=== PATIENT | male | born 1965 | race African-American/Black ===

== ENCOUNTER 2018-03-17 13:42 | Outpatient (CLI) | payer OTHER ==
--- NOTE | 2018-03-17 15:41 | RAD ---
CHEST PA AND LATERAL: HISTORY: A 52-year-old male with dyspnea. COMPARISON: 05/10/17. FINDINGS: Heart size is within normal limits. The lungs are clear. No pneumonia, edema, or pleural effusion. IMPRESSION: No acute intrathoracic disease. Stable from prior study. POS: [facility]
== END 2018-03-17 13:43 | disposition home or self-care (01) ==
LOC: RAD 13:42
PROVIDERS: ATTEND Family Medicine
DX: Z02.71 Encounter for disability determination (principal); R06.00 Dyspnea, unspecified
CPT/HCPCS: 71046

== ENCOUNTER 2018-08-02 10:37 | Emergency (ER) | payer OTHER, SELFPAY ==
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
== END 2018-08-02 12:00 | disposition home or self-care (01) ==
LOC: ERS 10:37
DX: S09.90XA Unspecified injury of head, initial encounter (principal); S40.021A Contusion of right upper arm, initial encounter; V43.92XA Unspecified car occupant injured in collision with other type car in traffic accident, initial encounter
CPT/HCPCS: 70450

== ENCOUNTER 2020-04-26 22:51 | Emergency (ER) | payer SELFPAY | END 2020-04-27 00:44 | disposition home or self-care (01) | LOC: ERS 22:51 | DX: R55 Syncope and collapse (principal); R59.0 Localized enlarged lymph nodes | CPT/HCPCS: 99284 ==